=== PATIENT | female | born 1970 | race African-American/Black ===

== ENCOUNTER 2021-02-01 11:06 | Outpatient (CLI) | payer OTHER, SELFPAY ==
--- NOTE | ~2021-02-01 | XR_ITS ---
XR cervical spine 4-5V DATE: 02/01/2021 11:29 INDICATION: Fall. Neck pain TECHNIQUE: AP, open-mouth, lateral, swimmer views COMPARISON: None FINDINGS: There is reversal of cervical curvature. There is anterior spurring at C3-4 through C6-7 but cervical interspaces are relatively preserved. No fracture or dislocation, locked facet or prevertebral soft tissue swelling. IMPRESSION: Reversal of cervical curvature Anterior spurring at C3-4 through C6-7 Reviewed, dictated and finalized at location B.
[2021-02-01 11:59] LABS: Basophils Percent Auto 0.4 % (0.2-1.2); Eosinophils Absolute Auto 0.1 K/mm3 (0-0.3); Eosinophils Percent Auto 1.5 % (0-4.4); Hematocrit 37.1 % (37.0-47.0); Hemoglobin 11.5 g/dL (12.0-15.0); Immature Granulocyte Absolute 0.03 K/mm3 (0.00-0.031); Immature Granulocyte Percent A 0.4 % (0-0.5); Lymphocytes Absolute Auto 2.08 K/mm3 (0.9-3.2); Lymphocytes Percent Auto 27.9 % (18.3-44.2); Mean Corpuscular Hemoglobin 30.8 pg (26-34); Mean Corpuscular Volume 99.5 fl (80-100); Mean Platelet Volume 8.6 fl (7.4-10.4); Monocytes Absolute Auto 0.7 K/mm3 (0.1-0.6); Monocytes Percent Auto 8.7 % (2.6-8.5); Neutrophils Absolute Auto 4.6 K/mm3 (1.3-6.7); Neutrophils Percent Auto 61.1 % (45.5-73.1); Platelet Count Result 284 k/mm3 (150-375); Red Blood Count 3.73 M/mm3 (4.2-5.4); Red Cell Distribution Width 14.7 % (11.5-14.5); White Blood Count 7.5 K/mm3 (4.5-10.0)
[2021-02-01 12:12] LABS: Rheumatoid Factor < 8.6 IU/ML (<12)
[2021-02-01 12:13] LABS: CRP 0.6 mg/dL (<1.0)
[2021-02-01 12:26] LABS: Erythrocyte Sedimentation Rate 81 mm/hr (0-20)
[2021-02-01 12:46] LABS: Vitamin D 25 Hydroxy 27.3 ng/mL
[2021-02-01 13:11] LABS: Vitamin B12 > 1000.0 pg/mL (239-931)
== END 2021-02-01 11:07 | disposition home or self-care (01) ==
PROVIDERS: PCP Internal Medicine; Visit Provider Family Medicine
DX: M25.50 Pain in unspecified joint (principal); Z13.29 Encounter for screening for other suspected endocrine disorder; R53.83 Other fatigue; M54.2 Cervicalgia
CPT/HCPCS: 36415; 72050; 82306; 82607; 84443; 85025; 85652; 86038; 86140; 86430

== ENCOUNTER 2021-02-20 07:43 | Outpatient (CLI) | payer OTHER, SELFPAY ==
--- NOTE | ~2021-02-20 | MR_ITS ---
EXAMINATION: MR hip RT wo con DATE: 02/20/2021 09:11 INDICATION: Right hip pain TECHNIQUE: Magnetic resonance imaging (MRI) of the right hip was performed without intravenous contr ast. Sequences included full-field axial PD-weighted FS FSE and T1-weighted FSE, coronal of the pelvi s with PD-weighted FS FSE, T2-weighted FSE and T1-weighted FSE, small field of view of the right hip with axial PD-weighted FS FSE, sagittal PD-weighted FS FSE, coronal PD-weighted FS FSE and coronal T2 weighted FSE. Additional radial T1-weighted FGR oriented orthogonal to the acetabular rim were obt ained for evaluation of the labrum. COMPARISON: None FINDINGS: Bones/labrum/cartilage: Alignment is normal. No fracture, avascular necrosis or pathologic marrow replacing process. Moderat e to severe osteoarthritis at the right hip with nonuniform joint space narrowing most prominent ante rosuperiorly where there is greater than 50% cartilage thickness loss. There is subarticular cystic c hange both the anterior and superior aspects of the acetabulum and at the anteromedial aspect of the right femoral head. Likely degenerative tearing at the anterosuperior right acetabular labrum. Modera te to severe lower lumbar spondylosis. Fluid: Symmetric physiologic amount of fluid within both hip joints. Soft tissues: Normal and symmetric muscle bulk and signal in the pelvis and visualized proximal thighs. The iliopso as, gluteal and proximal hamstring tendons are normal. Fibroid uterus. Nabothian cysts at the cervix. Diffuse wall thickening the bladder to at least in part to decompressed state. Mall fat-containing u mbilical hernia. No pathologically enlarged pelvic/inguinal lymphadenopathy. IMPRESSION: 1. Moderate to severe right hip osteoarthritis with likely degenerative tear at the anterosuperior la tanvi. 2. Fibroid uterus. 3. Bladder wall thickening to at least in part to decompressed state although differential includes c ystitis either acute or chronic, chronic outlet obstruction or neurogenic bladder. 4. Small fat-containing umbilical hernia. Reviewed, dictated and finalized at location A. IMPRESSION: 1. Moderate to severe right hip osteoarthritis with likely degenerative tear at the anterosuperior labrum. 2. Fibroid uterus. 3. Bladder wall thickening to at least in part to decompressed state although d ifferential includes cystitis either acute or chronic, chronic outlet obstructi on or neurogenic bladder. 4. Small fat-containing umbilical hernia.
== END 2021-02-20 07:44 | disposition home or self-care (01) ==
LOC: ANHIMG 07:44
PROVIDERS: PCP Family Medicine; Visit Provider Family Medicine
DX: M25.551 Pain in right hip (principal); D25.9 Leiomyoma of uterus, unspecified; N32.9 Bladder disorder, unspecified; K42.9 Umbilical hernia without obstruction or gangrene
CPT/HCPCS: 73721

== ENCOUNTER 2022-01-19 12:10 | Outpatient (CLI) | payer OTHER, SELFPAY ==
--- NOTE | ~2022-01-19 | XR_ITS ---
XR lumbar spine 2-3V DATE: 01/19/2022 13:19 INDICATION: Generalized back pain following fall TECHNIQUE: AP, lateral, coned lateral lumbosacral views COMPARISON: None FINDINGS: Normal alignment but minimal dextroscoliosis of the lumbar spine. There is multilevel degen erative disc disease, moderate at L1-2, mild at L2-3 and L3-4, moderately severe at L4-5 and severe a t L5-S1. There is associated minimal retrolisthesis at L4-5. There is degenerative change at the apophyseal joints particularly in the mid and lower lumbar and bhumika mbosacral area. The lumbar pedicles are intact. The sacroiliac joints appear normal. No lumbar spine fracture or bone destruction is detected. The pedicles are intact. Bilateral hip osteoarthritis, right greater than left. IMPRESSION: Multilevel degenerative disc disease, most pronounced at L4-5 and L5-S1 Minimal lumbar spine dextroscoliosis Bilateral hip osteoid arthritis, greater on the right No lumbar spine fracture is detected Reviewed, dictated and finalized at location B. IMPRESSION: Multilevel degenerative disc disease, most pronounced at L4-5 and L 5-S1 Minimal lumbar spine dextroscoliosis Bilateral hip osteoid arthritis, greater on the right No lumbar spine fracture is detected
--- NOTE | ~2022-01-19 | XR_ITS ---
XR wrist RT min 3V DATE: 01/19/2022 13:18 INDICATION: Generalized pain and throbbing following a fall TECHNIQUE: 4 views COMPARISON: None FINDINGS: There is some benign cystic changes of the carpal bones including navicular, lunate and cap itate. No fracture or dislocation is evident. Mild radial ulnar joint spurring. There is mild to moderate osteoarthritis at the first through third metacarpophalangeal joints. Mild osteoarthritis at first carpometacarpal joint IMPRESSION: Radioulnar joint mild spurring Mild to moderate osteoarthritis at first through third metacarpophalangeal joints Mild osteoarthritis at first carpometacarpal joint Benign carpal bone cysts No fracture or dislocation is noted Reviewed, dictated and finalized at location B. IMPRESSION: Radioulnar joint mild spurring Mild to moderate osteoarthritis at first through third metacarpophalangeal join ts Mild osteoarthritis at first carpometacarpal joint Benign carpal bone cysts No fracture or dislocation is noted
--- NOTE | ~2022-01-19 | XR_ITS ---
XR wrist LT min 3V DATE: 01/19/2022 13:18 INDICATION: Generalized pain and throbbing in the left wrist following a fall TECHNIQUE: 4 views COMPARISON: None FINDINGS: No apparent recent fracture or dislocation is noted. There is some increased density of the proximal navicular bone, raising concern for possible avascula r necrosis. Consider CT or MR evaluation of the wrist. IMPRESSION: Possible avascular necrosis of proximal navicular bone; consider CT or MR evaluation No apparent recent fracture or dislocation Reviewed, dictated and finalized at location B.
--- NOTE | ~2022-01-19 | XR_ITS ---
XR shoulder LT min 2V DATE: 01/19/2022 13:19 INDICATION: Pain and limited range of motion of left shoulder following a fall TECHNIQUE: 4 views COMPARISON: None FINDINGS: No fracture or dislocation, periosteal reaction or bone destruction. IMPRESSION: No fracture or dislocation Reviewed, dictated and finalized at location B. IMPRESSION: No fracture or dislocation
== END 2022-01-19 12:11 | disposition home or self-care (01) ==
LOC: ANHIMG 12:15
PROVIDERS: PCP Family Medicine; Visit Provider Family Medicine
DX: M25.512 Pain in left shoulder (principal); M51.36 Other intervertebral disc degeneration, lumbar region; M51.37 Other intervertebral disc degeneration, lumbosacral region; M16.0 Bilateral primary osteoarthritis of hip; M19.031 Primary osteoarthritis, right wrist
CPT/HCPCS: 72100; 73030; 73110

== ENCOUNTER 2022-02-01 10:51 | Outpatient (CLI) | payer OTHER, SELFPAY ==
--- NOTE | ~2022-02-01 | US_ITS ---
EXAMINATION: US pelvic complete w TV DATE: 02/01/2022 11:52 INDICATION: Benign neoplasm Comparison:No prior studies for comparison. TECHNIQUE: Multiple transabdominal and endovaginal sonographic images of the pelvis performed. FINDINGS: The uterus measures 9.8 x 4.3 x 5.6 cm. Uterine myometrium is heterogeneous with multiple m asses, largest exophytic mass posteriorly measures 3.1 x 2.5 x 2.9 cm. The endometrial complex measur es 8 mm. The ovaries are not visualized. There is no free fluid in the pelvis. There are no abnormal masses seen on either side. IMPRESSION: 1. Enlarged uterus containing multiple fibroids, largest measuring up to 3.1 cm posteriorly. Reviewed, dictated and finalized at location A.
== END 2022-02-01 10:52 | disposition home or self-care (01) ==
PROVIDERS: PCP Family Medicine; Visit Provider Student in an Organized Health Care Education/Training Program
DX: D21.9 Benign neoplasm of connective and other soft tissue, unspecified (principal)
CPT/HCPCS: 76830; 76856

== ENCOUNTER 2022-03-15 02:01 | Day surgery (SDC) | payer OTHER, SELFPAY ==
[2022-03-02 13:56] VITALS: BMI 53.4
[2022-03-15 07:28] VITALS: BP 155/99; PULSE 74; RESP 20; TEMP 35.9; O2SAT 100; BMI 52.6
[2022-03-15] MEDS: LACTATED RINGERS 1,000 ML 150 ML IV CONT (07:47)
--- NOTE | 2022-03-15 08:02 | WPDANESEPPF ---
Anes - Initial Pre Proc Eval Procedure: Operation Date: 03/15/22 08:30 Proposed Procedures p Screening Colonoscopy - Steven Gongora MD Date/Time: 03/15/22 08:02 Surgeon: Steven Gongora MD Pre Op Diagnosis: neoplasm screening Patient Data Age: 51 Gender: F Height: 1.6 m Weight: 134.8 kg Last Vital Signs Temp 96.6 F L 03/15/22 07:28 Pulse 74 03/15/22 07:28 Resp 20 03/15/22 07:28 BP 155/99 H 03/15/22 07:28 Pulse Ox 100 03/15/22 07:28 O2 Del Method Room Air 03/15/22 07:28 Allergies Allergy/AdvReac Type Severity Reaction Status Date / Time No Known Allergies Allergy Verified 03/15/22 07:27 Home Medications Medication Instructions Recorded Confirmed Type B-complex with vitamin C 1 tablet PO DAILY 01/18/22 03/02/22 History furosemide 20 mg tablet 10 mg PO QAM 01/18/22 03/02/22 History lactobacillus combination no.9 4 4,000 mmu cells PO DAILY 01/18/22 03/02/22 History billion cell capsule (Adult 50 Plus Probiotic) multivitamin (Daily Multi-Vitamin 1 tablet PO DAILY 01/18/22 03/02/22 History tablet) tumeric 100 mg-tyron 150 mg-olive 1 cap PO DAILY 01/18/22 03/02/22 History 50 mg-oreg 150 mg-caprylate capsule Patient hx anesthesia problems: none Family hx anesthesia problems: none Results Review: All pre-operative results and documents have been reviewed as part of the pre-operative evaluation. [facility] Past Medical History Medical History Arthritis History of miscarriage History of vaginal delivery Surgical History Surgical History History of section History of cholecystectomy History of dilation and curettage Family History Family History Mother Breast cancer Father Diabetes mellitus Grandparent Breast cancer Social History Social History (Reviewed 03/02/22 @ 11:14 by KAYLA Leslie Smoking status: Never smoker Alcohol intake: current Alcohol use details: socailly Substance use type: does not use Living arrangements: with family Spiritual care concerns: No Anes - Eval Final PreProcedure Day of Procedure 03/15/22 08:02 Patient weight: morbidly obese Heart: regular rate and rhythm Lungs: clear to auscultation Airway: Mallampati scale class II Neurological: alert and oriented Last oral intake: >/= 8 hours ASA classification: III Emergent: no Anesthetic plan: proceed Anesthesia type and monitoring: general GIVS and standard monitoring Results Review: All pre-operative results and documents have been reviewed as part of the pre-operative evaluation. Informed Consent: The patient's anesthetic plan and its attendant risks and benefits were discussed with the patient/family/POA. Questions were solicited and answers provided to the satisfaction of the patient/family/POA.
--- NOTE | 2022-03-15 08:28 | PM.HPGS ---
History of Present Illness History of Present Illness Consent: Risks, benefits, and alternatives have been discussed and questions answered. Patient agrees to proceed with procedure. Chief complaint: neoplasm screening Narrative: Lisa Walker is a 51 year old female here for first screening colonoscopy Review of Systems Constitutional: Constitutional: Denies headache(s) and Denies weakness Eyes: Eyes: Denies blurry vision ENT: Reports Normal hearing present, Denies headache(s) and Denies neck pain Cardiovascular: Cardiovascular: Denies chest pain and Denies dyspnea Respiratory: Respiratory: Denies dyspnea Gastrointestinal: Gastrointestinal: Reports no additional gastrointestinal complaints Genitourinary: Genitourinary: Denies dysuria Musculoskeletal: Musculoskeletal: Denies neck pain Integumentary/Breasts: Skin/Breast: Denies dry skin Neurologic: Reports Normal hearing present, Denies headache(s) and Denies weakness Psychiatric: Psychiatric: Denies anxiety Endocrine: Endocrine: Denies change in body appearance Hematologic/Lymphatic: Hematologic/Lymphatic: Denies easy bleeding Allergic/Immunologic: Allergic/Immunologic: Denies urticaria PMFSH Past Medical History Medical History (Updated 03/15/22 @ 08:28 by Steven Gongora MD) Arthritis Colon cancer screening History of miscarriage History of vaginal delivery Surgical History Surgical History History of section History of cholecystectomy History of dilation and curettage Family History Family History Mother Breast cancer Father Diabetes mellitus Grandparent Breast cancer Social History Social History Smoking status: Never smoker Alcohol intake: current Alcohol use details: socailly Substance use type: does not use Living arrangements: with family Spiritual care concerns: No Meds Home Medications and Allergies Home Medications Medication Instructions Recorded Confirmed Type B-complex with vitamin C 1 tablet PO DAILY 01/18/22 03/02/22 History furosemide 20 mg tablet 10 mg PO QAM 01/18/22 03/02/22 History lactobacillus combination no.9 4 4,000 mmu cells PO DAILY 01/18/22 03/02/22 History billion cell capsule (Adult 50 Plus Probiotic) multivitamin (Daily Multi-Vitamin 1 tablet PO DAILY 01/18/22 03/02/22 History tablet) tumeric 100 mg-tyron 150 mg-olive 1 cap PO DAILY 01/18/22 03/02/22 History 50 mg-oreg 150 mg-caprylate capsule Allergies Allergy/AdvReac Type Severity Reaction Status Date / Time No Known Allergies Allergy Verified 03/15/22 07:27 Vital Signs Vital Signs - 24 hr 03/15/22 07:28 Temperature 96.6 F L Pulse Rate 74 Respiratory Rate 20 Blood Pressure 155/99 H Pulse Oximetry 100 Oxygen Delivery Room Air Exam Const: General: comfortable and no acute distress HENMT: General nose exam: Normal nares present Eyes: General: appearance normal, both eyes and all related structures Neck: Neck: no JVD Resp: Auscultation: clear to auscultation bilaterally Cardio: Rate: regular rate Rhythm: regular rhythm GI: Inspection: non-distended GI Palp: Yes Soft to palpation Skin: General skin exam: normal color Neuro: General: gait normal Speech: normal speech Extrem: General: normal to inspection Psych: Mental Status: mental status grossly normal Assessment and Plan Assessment and plan (1) Colon cancer screening: Code(s): Z12.11 - Encounter for screening for malignant neoplasm of colon Status: Acute Assessment and Plan: colonoscopy
[2022-03-15 08:50] VITALS: BP 136/89; PULSE 81; RESP 21; O2SAT 100
[2022-03-15 09:00] VITALS: BP 129/82; PULSE 75; RESP 20; O2SAT 100
[2022-03-15 09:10] VITALS: BP 134/92; PULSE 61; RESP 17; O2SAT 100
== END 2022-03-15 09:23 | disposition home or self-care (01) ==
PROVIDERS: PCP Family Medicine; Visit Provider Internal Medicine Gastroenterology
PROC: 0DJD8ZZ Inspection of Lower Intestinal Tract, Via Natural or Artificial Opening Endoscopic (ICD-10-PCS; CPT 45378; principal; 2022-03-15 08:30)
DX: Z12.11 Encounter for screening for malignant neoplasm of colon (principal); K64.8 Other hemorrhoids; M19.90 Unspecified osteoarthritis, unspecified site; E66.01 Morbid (severe) obesity due to excess calories; Z68.43 Body mass index [BMI] 50.0-59.9, adult
CPT/HCPCS: 45378; J2001; J7120

== ENCOUNTER 2022-05-18 07:30 | Outpatient (RCR) | payer OTHER, SELFPAY ==
--- NOTE | 2022-02-23 09:14 | PTOPEVAL ---
Thank you for referring Lisa Walker to [facility].? She is scheduled to be seen for therapy? 2 x/week for 5 weeks. Treatment plan is to include land and aquatic exercises. Please review, sign, date and return this plan of care ROHIT. I agree with and certify that the following plan of care is medically necessary. Referring Physician Date Attending Provider: Ronaldo Levin MD Past Medical History Source of Past Medical History Patient Neurological History Hx Neurological Disorders No Significant History Cardiovascular History Hx Cardiac Disorders No Significant History Respiratory History Hx Respiratory Disorders No Significant History Gastrointestinal History Hx Cholecystectomy Yes Genitourinary History Hx Genitourinary Disorders No Significant History Musculoskeletal History Hx Arthritis Yes: all over--R hip,L knee, B wrists,neck; Hx Other Musculoskeletal Disorders Yes: L knee meniscal tear-non surgery; Hematological History Hx Hematological Disorders No Significant History Endocrine History Hx Endocrine Disorders No Significant History Other History Hx Other Medical Conditions Yes: obesity Evaluation Information Diagnosis generalized OA-needs water therapy Onset one year Subjective Information chronic pain, gradual increase Query Text:As Reported By Patient/ in pain; have had 2 falls-- Family 2018 and Feb 2021--one was sitting and woke up on floor, not sure what happened; walking and fell on black ice; have had chiropractor treatment- had back & hip manipulation, helped align pelvis and able to start walking again; Previous Treatments Previous Treatments For This Problem had aquatic therapy here prior to covid restrictions Prior Level of Function Activity Level (Last 3 Months) 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
--- NOTE | 2022-04-06 11:42 | PTOPPROG ---
Assessment and note entered by Supriya Waterman, PT Evaluation Information Assessment Status Re-evaluation Subjective Information Lisa reports: back and hip are not any better, still aggravating and hurting; but feel like exercises are getting her stronger and moving is helping some; saw Dr Garcia, and he said cannot do surgery on hip until lose wt, has a nutrition consult order and wants her to use a cane; she wants to continue therapy; Assessment PT Clinical Summary Lisa has received 9 PT sessions, for the diagnosis of back and R hip pain. Compared to the initial evaluation: pain rating at the worst is the same 10/10, and reports now at times of NO pain in hip with lying down and hip & knee flexion; increased strength with more reps of supine exercises and doing aquatic exercises; increased distance with 2 minute walking test of 25'; reported sleeping tolerance is same; when she is feeling better, increased standing and home tasks tolerance from 15 min to 1 hour; flexibility of R hip is the same and increases her pain; self assessment Oswestry score is 66% -- improved by 12%; Have discussed with her use of home TENS unit for pain control; walking with a cane and joining a fitness center that has a pool for continued strengthening and wt loss. Continue PT treatment on land and in the water-- for the buoyancy effects of the water to ease movement and strengthening. Plan of Care Interventions Aquatic Therapy,Hot Pack/Cold Pack,Manual Therapy, Patient/Caregiver Education,Therapeutic Activities, Therapeutic Exercise PT Services Indicated Yes Treatment Frequency and 2x/wk for 5 weeks Duration These treatments will address the objective and functional deficits as defined above. The patient will be advanced safely and appropriately in order for the patient to progress towards his/her prior level of function. Additional exercises will be introduced and as well as a comprehensive home exercise program upon discharge, if needed, ?to ensure carryover of functional gains achieved in the clinic. This treatment plan has been reviewed and agreement upon by the patient.
--- NOTE | 2022-05-10 08:14 | PCPTNOTE ---
Patient did not show up for scheduled appointment this date. Pt did call however Pt called after appointment time at 07:50am.
--- NOTE | 2022-05-11 09:07 | PTOPPROG ---
Assessment and note entered by Supriya Waterman, PT Evaluation Information Assessment Status Progress Subjective Information Lisa reports: is about the same with the hip, back is more stiff; still working alot, shifts 8- 12 hours, have done up to 18 hour shift; stim and pool help the hip pain; pain range of 5-8/10; R lateral and anterior hip, also deep inside hip; feels swollen and heat in the hip and legs; with sleeping, awaken 5x/night due to pain; reported standing/walking tolerance 10-15 min, then have to hold onto something or sit down; also have pain in L knee; can only do light home tasks, have not been cooking; decrease pain with resting, lie down, stretching; having problems with getting shoes and socks on-- demo to pt and trial of sock aid, neurology physician and dressing stick; discussed home stim unit; Assessment PT Clinical Summary Lisa has received 16 PT sessions, on land and in the water. Oswestry self assessment functional score of 72% limitation in activity. Compared to the last reevaluation she has improved with: pain rating at the worst has decreased from 10/10 to 8/10; 2 minute walking test distance increased 80'; does not have pain increase with supine hip ER or hamstring stretch, trunk flexion or rotation to L; activity tolerance with aquatic exercises and slight increase with supine hip exercises; self assessment Oswestry is 6% worse. She is about the same with reported sleeping and activity tolerance, flexibility of hip flexion and hamstring length; Discussed with her to make a follow up appointment with her dr; obtain home stim unit for pain control, use of sock aid and dressing stick for shoes and socks don/doffing. And to join a fitness center for aquatic exercises. The goals were partially achieved. Continue PT. Plan for one more plan of treatment for 4 weeks, then plan for discharge from PT services. Plan of Care Interventions Aquatic Therapy,Electrical Stimulation,Hot Pack/ Cold Pack,Manual Therapy,Neuro Re-education, Patient/Caregiver Education,Therapeutic Activities, Therapeutic Exercise,Ultrasound PT Services Indicated Yes Treatment Frequency and 2x/wk for 4 weeks Duration These treatments will address the objective and functional deficits as defined above. The patient wi
--- NOTE | 2022-05-23 09:02 | PCPTNOTE ---
This treatment is being continued on visit number [id number] . Please see documentation on both accounts to view progress. Completed interventions, outcomes, and problems have been marked as Inactive to facilitate the copying of the Care plan routine for recurring accounts.
== END 2022-05-23 07:21 | disposition home or self-care (01) ==
LOC: ANHPT 07:30
PROVIDERS: PCP Family Medicine; Visit Provider Family Medicine
DX: M19.90 Unspecified osteoarthritis, unspecified site (principal)
CPT/HCPCS: 97014; 97110; 97113; 97140; 97161; 97530; G0283

== ENCOUNTER 2022-05-31 08:00 | Outpatient (RCR) | payer OTHER, SELFPAY ==
--- NOTE | 2022-05-23 09:21 | PCPTNOTE ---
This treatment is continued from previous visit number [id number]. Please see documentation on both accounts to view progress. Completed interventions, outcomes, and problems have been marked as Inactive to facilitate the copying of the Care plan routine for recurring accounts.
--- NOTE | 2022-05-26 11:41 | PCPTNOTE ---
Patient called & cancelled scheduled appointment this date due to work.
--- NOTE | 2022-06-07 08:50 | PCPTNOTE ---
Patient did not show up for scheduled appointment this date. Called patient, however, was unable to leave a message due to mailbox was full.
--- NOTE | 2022-06-08 08:46 | PCPTNOTE ---
Addendum entered by Supriya Waterman, PT 06/08/22 14:17: pt called and left a message that she had to work and not able to make it in for today's reeval; Original Note: pt did not show for today's reeval; called her and unable to leave a message, her voice mail was full; will send her an in house/hospital email;
--- NOTE | 2022-06-21 10:27 | PCPTNOTE ---
PHYSICAL THERAPY DISCHARGE 06-21-22 Attending Provider: Ronaldo Levin MD Patient:Lisa Walker Date of :1970 Ms. Walker has received 19 PT sessions, from February 23 to May 31, for the diagnosis of R hip severe OA. She then stopped attending therapy; Therefore she will be discharged at this time. The goals were not addressed. Thank you for referring this patient to [facility].
== END 2022-06-21 11:33 | disposition home or self-care (01) ==
LOC: ANHPT 08:00
PROVIDERS: PCP Family Medicine; Visit Provider Family Medicine
DX: M16.11 Unilateral primary osteoarthritis, right hip (principal)
CPT/HCPCS: 97014; 97110; 97113; G0283

== ENCOUNTER 2022-08-03 08:10 | Outpatient (RCR) | payer OTHER, SELFPAY ==
[2022-08-03 08:22] VITALS: BMI 53.1
[2022-08-03 10:35] VITALS: BMI 53.1
== END 2022-10-23 08:48 | disposition home or self-care (01) ==
LOC: ANHDMC 08:10
PROVIDERS: PCP Family Medicine; Visit Provider Family Medicine
DX: R63.4 Abnormal weight loss (principal); Z71.3 Dietary counseling and surveillance
CPT/HCPCS: 97802

== ENCOUNTER 2022-10-12 11:21 | Outpatient (CLI) | payer OTHER, SELFPAY ==
--- NOTE | 2022-10-12 | ECG_ITS ---
Measurements Intervals [place] Rate: 64 P: 33 NE: 166 QRS: 40 QRSD: 84 T: 28 QT: 421 QTc: 437 Interpretive Statements SINUS RHYTHM BASELINE ARTIFACT- I, III, AVR, AVL, AVF NORMAL ECG NO PREVIOUS ECG AVAILABLE FOR COMPARISON Electronically Signed On 10-12-2022 12:46:44 CDT by Thuan Quintanilla D.O.
== END 2022-10-12 11:22 | disposition home or self-care (01) ==
LOC: ANHCARD 11:24
PROVIDERS: PCP Family Medicine; Visit Provider Obstetrics & Gynecology
DX: E66.9 Obesity, unspecified (principal)
CPT/HCPCS: 93005

== ENCOUNTER 2023-06-04 07:19 | Outpatient (CLI) | payer OTHER, SELFPAY ==
--- NOTE | ~2023-06-04 | XR_ITS ---
Lumbosacral Spine: AP and lateral views Clinical History: Pain Findings: The normal lordotic curve is maintained. The vertebral bodies and posterior elements are i ntact. There is mild to moderate degenerative disc narrowing at L4-L5 and L5-S1. There is moderate to advanced facet arthropathy from L4 through S1. The sacroiliac joints are normally outlined. Impression: Moderate degenerative spondylosis at the lower lumbar spine, as detailed above. Reviewed, dictated and finalized at location M. TY EQUIPMENT TESTER Impression: Moderate degenerative spondylosis at the lower lumbar spine, as detailed above.
--- NOTE | ~2023-06-04 | XR_ITS ---
Thoracic spine: Clinical Indication: Back pain AP and lateral views were performed. No fracture is seen. There is normal alignment of the vertebrae. The intervertebral disc spaces appe ar normal. Paravertebral soft tissues appear normal. Impression: No significant abnormalities noted. Reviewed, dictated and finalized at [facility]. SFER MACHINE OPERATOR Impression: No significant abnormalities noted.
--- NOTE | ~2023-06-04 | XR_ITS ---
Cervical Spine: AP, lateral, open-mouth views Clinical History: Pain Findings: There is mild reversal of the normal cervical lordosis. No fracture or subluxation seen. Th ere is minimal degenerative disc change. Pre-vertebral soft tissues are unremarkable. Impression: Mild reversal of the normal cervical lordosis, with minimal degenerative disc change. Reviewed, dictated and finalized at [facility]. CT CHILL CASTER Impression: Mild reversal of the normal cervical lordosis, with minimal degenerative disc c fernando.
== END 2023-06-04 07:20 | disposition home or self-care (01) ==
PROVIDERS: PCP Family Medicine; Visit Provider Chiropractor
DX: M54.2 Cervicalgia (principal); M54.6 Pain in thoracic spine; M47.896 Other spondylosis, lumbar region
CPT/HCPCS: 72040; 72050; 72072; 72100

== ENCOUNTER 2024-07-04 10:31 | Outpatient (CLI) | payer OTHER, SELFPAY ==
--- NOTE | ~2024-07-04 | CT_ITS ---
CT of the Abdomen and Pelvis: Indication: Bloating Technique: 2.5 mm axial scans were obtained through the abdomen and pelvis following intravenous adm inistration of 100 cc of Omnipaque 350. Dose reduction technique was used on this scan by utilizing a utomated exposure control and iterative reconstruction technique. The dose-length product (DLP) was 1 044.50 mGy-cm. Findings: Scans through the lung bases are unremarkable. The liver, spleen, pancreas, adrenals and kidneys are within normal limits. Cholecystectomy clips are noted. No evidence of aortic aneurysm. No lymphadenopathy. No bowel obstruction or bowel wall thickening. There is no evidence to suggest acute appendicitis. Sm all fat-containing umbilical hernia present. Images through the pelvis were performed. Urinary bladder unremarkable. Probable uterine fibroid prob ably present. No ascites. Impression: Small fat-containing umbilical hernia. Probable uterine fibroid. Reviewed, dictated and finalized at [facility]. [employer]ING [employer]ER Impression: Small fat-containing umbilical hernia. Probable uterine fibroid.
== END 2024-07-04 10:32 | disposition home or self-care (01) ==
LOC: MICIMG 10:33
PROVIDERS: PCP Internal Medicine Gastroenterology; Visit Provider Internal Medicine Gastroenterology
DX: K42.9 Umbilical hernia without obstruction or gangrene (principal)
CPT/HCPCS: 74177; Q9967

== ENCOUNTER 2024-07-10 12:03 | Outpatient (CLI) | payer OTHER, SELFPAY ==
[2024-07-10 12:32] LABS: Hematocrit 40.3 % (37.0-47.0); Hemoglobin 12.9 g/dL (12.0-15.0); Mean Corpuscular Hemoglobin 31.9 pg (26-34); Mean Corpuscular Volume 99.8 fl (80-100); Mean Platelet Volume 8.7 fl (7.4-10.4); Platelet Count Result 279 k/mm3 (150-375); Red Blood Count 4.04 M/mm3 (4.2-5.4); Red Cell Distribution Width 13.5 % (11.5-14.5); White Blood Count 7.2 K/mm3 (4.5-10.0)
[2024-07-10 12:42] LABS: Alanine Aminotransferase 16 U/L (6-35); Albumin Level 4.1 g/dL (3.5-5.1); Alkaline Phosphatase 89 U/L (38-126); Anion Gap 2 mmol/L (4-12); Aspartate Amino Transferase 25 U/L (14-36); Bilirubin,Total 0.6 mg/dL (0.2-1.3); Blood Urea Nitrogen 8 mg/dL (7-17); Calcium 9.2 mg/dL (8.4-10.2); Carbon Dioxide 26 mmol/L (22-30); Chloride 110 mmol/L (98-107); Estimated Glomerular Filt Rate > 60; Glucose 96 mg/dL (65-110); Potassium 4.2 mmol/L (3.4-5.0); Sodium 138 mmol/L (137-145)
== END 2024-07-10 12:04 | disposition home or self-care (01) ==
PROVIDERS: PCP Internal Medicine Gastroenterology; Visit Provider Internal Medicine Gastroenterology
DX: R19.07 Generalized intra-abdominal and pelvic swelling, mass and lump (principal); R60.0 Localized edema
CPT/HCPCS: 36415; 80053; 85027

== ENCOUNTER 2024-10-10 08:59 | Outpatient (CLI) | payer OTHER, SELFPAY ==
--- OUTSIDE RECORDS SUMMARY | 2024-10-10 10:03 | XMS_ITS | Data Portability ---
Author Organization [facility] Address [address] [place] [address] [place] [address] Care Team Providers Care Material Manager Name Role Phone MADDISON IVERSONLEON Primary Care Provider Assessment Encounter Date Assessment Date Assessment LastModified by Organization Details LastModified Time 08/11/2024 08/11/2024 Annual gynecological exam performed. Patient will come back in a year unless there are new symptoms. [email or web address] Not available 08/11/2024 16:43:42 Plan of Treatment Reminders Order Date Submit Date Provider Last Modified By Organization Details Last Modified Time Details Appointments None recorded. Lab urinalysis, dipstick 2024 025 [facility], [address], [address], [place], [address], 18:42:38 culture, urine 2024 025 [facility] (Lab), [address], [place], [address], 5 00:26:53 CBC w/ auto diff 2024 025 [facility] (Lab), [address], [place], [address], 5 04:01:36 CMP, serum or plasma 2024 025 [facility] (Lab), [address], [place], [address], 5 04:01:36 lipid panel, blood 2024 025 [facility] (Lab), [address], [place], [address], 5 04:01:36 TSH, serum or plasma 2024 025 [facility] (Lab), [address], [place], [address], 5 04:01:36 HbA1c (hemoglobin A1c), blood 2024 025 [facility] (Lab), [address], [place], [address], 5 04:01:36 pap, IG + HR HPV - HPV regardless but if HPV is positive need subtyping 16,18/45Add CT/GC/Trich 2024 025 [facility] (Lab), [address] , [place], [address], 5 13:13:53 hormone panel, serum or plasma 2024 025 [facility] (Lab), [address], [place], [address], 5 04:01:37 Referral physical therapist referral [address] [place] [address] (Outpatient Physical Therapy), [address], [place], [address], 5 04:03:22 Procedures None recorded. Surgeries None recorded. Imaging MAMMO, screening, digital, bilateral 2024 025 [facility] ([facility]), [address] [place], [address], 5 04:01:36 Medication Orders phentermine 15 mg capsule 2022 023 [email or web address] [facility] #[id number], [address] [place] [address], [id number], 5 17:26:03 Ozempic 0.25 mg or 0.5 mg (2 mg/1.5 mL) subcutaneou s pen injector 2022 023 [email or web address] [facility] #[id number], [address] [place] [address], [id number], 5 17:26:05 Mounjaro 2.5 mg/0.5 mL subcutaneou s pen injector 2022 023 LUIS E [facility] #[id number], [address] [place] [address], [id number], 3 13:11:57 Patient TargetsNo targets recorded. Patient InstructionsNo instructions recorded. Reason for Referral Physical Therapist Referral for Female stress incontinence Referring Physician: Fatuma Mendez, Gynecology, Encounter Date: 08/11/2024 Results Created Date Observation Date Name Description Value Unit Range Abnormal Flag Note LastModifiedBy Organization Detail LastModifiedTime 09/13/19 23 09/13/2022 CBC W/DIF F WBC 9.8 10'3/ uL 3.6-10 .2 Not Available [facility] (Lab) [address] , [place], [address], 09/14/2022 03:56:52 09/13/19 23 09/13/2022 CBC W/DIF F RBC 3.92 10'6/ uL (based on docume nted legal sex) 4.10-5 .30 low Not Available [facility] (Lab) [address] [place], [address], 09/14/2022 03:56:52 09/13/19 23 09/13/2022 CBC W/DIF F HGB 12.5 g/dL (based on docume nted legal sex) 11.9-1 5.8 Not Available [facility] (Lab) [address], [place], [address], 09/14/2022 03:56:52 09/13/19 23 09/13/2022 CBC W/DIF F HCT 41.3 % (based on docume nted legal sex) 37.4-4 8.3 Not Available [facility] (Lab) [address], [place], [address], 09/14/2022 03:56:52 09/13/19 23 09/13/2022 CBC W/DIF F MCV 105.4 fL 82.0-9 9.0 high Not Available [facility] (Lab) [address], [place], [address], 09/14/2022 03:56:52 09/13/19 23 09/13/2022 CBC W/DIF F MCH 31.9 pg 27.0-3 3.0 Not Available [facility] (Lab) [address], [place], [address], 09/14/2022 03:56:52 09/13/19 23 09/13/2022 CBC W/DIF F MCHC 30.3 g/dL 32.0-3 6.0 low Not Available [facility] (Lab) [address], [place], [address], 09/14/2022 03:56:52 09/13/19 23 09/13/2022 CBC W/DIF F RDW 13.9 % 11.0-1 5.0 Not Available [facility] (Lab) [address], [place], [address], 09/14/2022 03:56:52 09/13/19 23 09/13/2022 CBC W/DIF F plt 342 10'3/ uL 150-45 0 Not Available [facility] (Lab) [address] [place], [address], 09/14/2022 03:56:52 09/13/19 23 09/13/2022 CBC W/DIF F MPV 9.7 fL 9.8-12 .7 low Not Available [facility] (Lab) [address], [place], [address], 09/14/2022 03:56:52 09/13/19 23 09/13/2022 CBC W/DIF F NRBC's 0.0 % 0 Not Available [facility] (Lab) [address], [place], [address], 09/14/2022 03:56:52 09/13/19 23 09/13/2022 CBC W/DIF F absolute NRBCs 0.0 10'3/ uL 0 Not Available [facility] (Lab) [address], [place], [address], 09/14/2022 03:56:52 09/13/19 23 09/13/2022 CBC W/DIF F neutrophils 61.2 % 37.0-7 2.0 Not Available [facility] (Lab) [address], [place], [address], 09/14/2022 03:56:52 09/13/19 23 09/13/2022 CBC W/DIF F lymphocytes 27.5 % 16.0-4 8.0 Not Available [facility] (Lab) [address], [place], [address], 09/14/2022 03:56:52 09/13/19 23 09/13/2022 CBC W/DIF F monocytes 9.6 % 4.0-14 .0 Not Available [facility] (Lab) [address], [place], [address], 09/14/2022 03:56:52 09/13/19 23 09/13/2022 CBC W/DIF F eosinophils 1.1 % 0.0-9. 0 Not Available [facility] (Lab) [address], [place], [address], 09/14/2022 03:56:52 09/13/19 23 09/13/2022 CBC W/DIF F basophils 0.4 % 0.0-2. 0 Not Available [facility] (Lab) [address], [place], [address], 09/14/2022 03:56:52 09/13/19 23 09/13/2022 CBC W/DIF F immature granulocytes 0.2 % no define d refere nce range Not Available [facility] (Lab) [address] [facility], [place], [address], 09/14/2022 03:56:52 09/13/19 23 09/13/2022 CBC W/DIF F absolute neutrophils 6.0 10'3/ uL 1.1-6. 0 Not Available [facility] (Lab) [address] [facility], [place], [address], 09/14/2022 03:56:52 09/13/19 23 09/13/2022 CBC W/DIF F absolute lymphocytes 2.7 10'3/ uL 0.7-3. 4 Not Available [facility] (Lab) [address] [facility], [place], [address], 09/14/2022 03:56:52 09/13/19 23 09/13/2022 CBC W/DIF F absolute monocytes 0.9 10'3/ uL 0.3-1. 0 Not Available [facility] (Lab) [address] [facility], [place], [address], 09/14/2022 03:56:52 09/13/19 23 09/13/2022 CBC W/DIF F absolute eosinophils 0.1 10'3/ uL 0.0-0. 6 Not Available [facility] (Lab) [address] [facility], [place], [address], 09/14/2022 03:56:52 09/13/19 23 09/13/2022 CBC W/DIF F absolute basophils 0.0 10'3/ uL 0.0-0. 1 Not Available [facility] (Lab) [address] [facility], [place], [address], 09/14/2022 03:56:52 09/13/19 23 09/13/2022 CBC W/DIF F absolute immature granulocytes 0.0 10'3/ uL 0.00-0 .10 2022 2:23 AM: P indic ates parti al resul ts on a panel have been relea sed. Addit ional resul ts will follo w. 2022 2:23 AM: This resul t has been final verif ied. No addit ional or dunham ed resul ts are expec odmenic. Not Available [facility] (Lab) [address] [facility], [place], [address], 09/14/2022 03:56:52 09/13/19 23 09/13/2022 LIPID PANEL ,AMA (LDL- CALC) total cholesterol 141 mg/dL 0-199 Not Available [facility] (Lab) [address] [facility], [place], [address], 09/14/2022 03:56:52 09/13/19 23 09/13/2022 LIPID PANEL ,AMA (LDL- CALC) triglyceride s 60 mg/dL 0.00-1 50.00 NCEP Refer ence Value s for Trigl yceri jennifer: Cristela l: <150 mg/dL Borde rline High: 150 - 199 mg/dL High: 200 - 499 mg/dL Very High: >/= 500 mg/dL Not Available [facility] (Lab) [address] [facility], [place], [address], 09/14/2022 03:56:52 09/13/19 23 09/13/2022 LIPID PANEL ,AMA (LDL- CALC) HDL cholesterol 51 mg/dL >40 Not Available [facility] (Lab) [address] [facility], [place], [address], 09/14/2022 03:56:52 09/13/19 23 09/13/2022 LIPID PANEL ,AMA (LDL- CALC) LDL cholesterol 78 mg/dL 0-99 Cutof f value s recom rebecca d by the Natio nal Betsy stero l [employer]ca tion Progr am: KRYSTINA ABLE: Betsy stero l <200 mg/dL LDL <100 mg/dL BORDE RLINE : Betsy stero l 200-2 39 mg/dL LDL 101-1 59 mg/dL HIGHE R RISK: Betsy stero l >240 mg/dL LDL >160 mg/dL , HDL <40 mg/dL Not Available [facility] (Lab) [address] [facility], [place], [address], 09/14/2022 03:56:52 09/13/1909/13/2022 LIPID PANEL ,AMA (LDL- CALC) non-HDL cholesterol 90 mg/dL no refere nce range A reaso nable goal for non-H DL betsy stero l is one that is 30 mg/dL highe r than the LDL betsy stero l goal. Not Available [facility] (Lab) [address] [facility], [place], [address], 09/14/2022 03:56:52 09/13/19 23 09/13/2022 LIPID PANEL ,AMA (LDL- CALC) chol/HDL ratio 2.8 . 0.0-5. 0 Not Available [facility] (Lab) [address] [place], [address], 09/14/2022 03:56:52 09/13/19 23 09/13/2022 TSH, REFLE X FREE T4 TSH 2.15 uIU/m L 0.30-5 .33 Not Available [facility] (Lab) [address] [place], [address], 09/14/2022 03:56:53 09/13/19 23 09/13/2022 VITAM IN D, 25-OH (TOTA L D2/D3 ) vitamin D, 25-hydroxy, total 21.5 NG/mL 30.0-1 00.0 low Sugge stive of Defic iency : <20 ng/mL Sugge stive of Insuf ficie ncy: 20-29 ng/mL Sugge stive of Suffi cienc y: 30-10 0 ng/mL Sugge stive of Toxic ity: >150 ng/mL Not Available [facility] (Lab) [address] , [place], [address], 09/14/2022 03:56:53 10/06/1910/05/2022 HEMOG LOBIN A1C hemoglobin A1C 5.7 % 0-5.6 high The Ameri can [employer]abe shaun [employer] iatio n recom mends that a prima ry goal of thera py shoul d be a HBA1C of < 7% and that physi cians shoul d reeva luate the treat ment regim en in patie nts with HBA1C value s consi stent ly > 8%. <5.7% Cristela l 5.7 - 6.4% Incre ased risk for diabe shaun >=6.5 % Diagn ostic of diabe shaun <7.0% Goal of thera py >8.0% Actio n sugge sted Not Available [facility] (Lab) [address], [place], [address], 10/06/2022 02:36:11 08/11/19 25 08/11/2024 urina lysis , dipst ick Leukocytes - Not Available [facility] [address], [place], [address], 08/11/2024 18:28:22 08/11/19 25 08/11/2024 urina lysis , dipst ick Nitrite + Not Available [facility] [address], [place], [address], 08/11/2024 18:28:22 08/11/19 25 08/11/2024 urina lysis , dipst ick Urobilinogen - Not Available Octavio mondragon [address], [place], [address], 08/11/2024 18:28:22 08/11/19 25 08/11/2024 urina lysis , dipst ick Protein trace Not Available [facility] [address], [place], [address], 08/11/2024 18:28:22 08/11/19 25 08/11/2024 urina lysis , dipst ick pH 7 Not Available [facility] [address], [place], [address], 08/11/2024 18:28:22 08/11/19 25 08/11/2024 urina lysis , dipst ick Specific [place] 1.015 Not Available [facility] marialuisa [address], [place], [address], 08/11/2024 18:28:22 08/11/19 25 08/11/2024 urina lysis , dipst ick Ketone - Not Available [facility] [address], [place], [address], 08/11/2024 18:28:22 08/11/19 25 08/11/2024 urina lysis , dipst ick Bilirubin - Not Available Riya [facility]que [address], [place], [address], 08/11/2024 18:28:22 08/11/19 25 08/11/2024 urina lysis , dipst ick Glucose - Not Available [facility] [address], [place], [address], 08/11/2024 18:28:22 08/11/19 25 08/11/2024 urina lysis , dipst ick Appearance cloudy Not Available [facility] [address], [place], [address], 08/11/2024 18:28:22 08/11/19 25 08/11/2024 urina lysis , dipst ick Color yellow Not Available [facility] [address], [place], [address], 08/11/2024 18:28:22 08/12/19 25 08/12/2024 CULTU RE: URINE result report SEE RESULT S BELOW abnormal Test: Cultu re: Urine Speci men Sourc e: Urine - Clean Catch Speci men Type: Urine Speci men Date: 2024 1013 Resul t Date: 2024 2323 Resul t Statu s: Final resul t Abnor mal: Yes Resul satish Lab: [facility] [address] [facility] [address] Tel: CULTU RE ----- ----- ----- --- >100, 000 CFU/m l Klebs iella pneum oniae (Abno rmal) SUSCE PTIBI LITY ----- ----- ----- --- Klebs iella pneum oniae METHO D NINA ----- ----- ----- ----- ----- ---- ----- ----- ----- ----- ----- - AMPIC ILLIN /SULB ACTAM <=8 ug/mL Susce ptibl e AZTRE ONAM <=4 ug/mL Susce ptibl e CEFAZ OTILIO <=2 ug/mL Susce ptibl e CEFEP YISSEL <=2 ug/mL Susce ptibl e CEFTA ZIDIM E <=1 ug/mL Susce ptibl e CEFTR IAXON E <=1 ug/mL Susce ptibl e CIPRO FLOXA LORNA <=0.2 5 ug/mL Susce ptibl e GENTA MICIN <=2 ug/mL Susce ptibl e LEVOF LOXAC IN <=0.5 ug/mL Susce ptibl e MEROP ENEM <=1 ug/mL Susce ptibl e NITRO FURAN TOIN 64 ug/mL Inter media te PIPER ACILL IN/TA ZOBAC ARCHIBALD <=8 ug/mL Susce ptibl e TOBRA MYCIN <=2 ug/mL Susce ptibl e TRIME THOPR IM/BARDALES LFAME THOXA ZOLE <=2 ug/mL Susce ptibl e Not Available [facility] (Lab) [address], [place], [address], 08/15/2024 00:26:53 10/13/1910/12/2022 elect ankur coleman am No observ ation record ed. [address] (Resp Services) [facility] [address] [place] [address], [address], 10/12/2022 20:36:30 Result Notes None recorded. Procedures Surgical History None recorded. Imaging Results Imaging Date Name Status LastModified by Organization Details LastModified Time 10/12/2022 electrocardiogram completed [address] (Resp Services) [address] [facility] [address], [place], [address], 10/12/2022 20:36:30 Procedure Notes None recorded. Medical Equipment None Reported. Medications Name Sig Start Date Stop Date Status Note LastModified by Organization Details LastModified Time phentermine 15 mg capsule TAKE 1 CAPSULE BY MOUTH EVERY DAY 08/11 completed Not Available Not Available Not Available sulfamethox azole 800 mg-trimetho prim 160 mg tablet Take 1 tablet every 12 hours by oral route for 7 days. 2024 active Not Available Not Available Not Avai lable topiramate 50 mg tablet TAKE 1 TABLET BY MOUTH TWICE DAILY active Not Available Not Available No t Available digestive enzymes active Not Available Not Available Not Available B Complex active Not Available Not Linda ilable Not Available Vitamin D active Not Available Not Linda ilable Not Available [place] 3 active Not Available Not Avail able Not Available Vitamin B12 active Not Available Not A vailable Not Available elderberry fruit active Not Available Not Available Not Available Probiotic active Not Available Not Linda ilable Not Available Ozempic 0.25 mg or 0.5 mg (2 mg/1.5 mL) subcutaneou s pen injector Inject 0.25 mg by subcutane ous route. 08/11 completed Not Available Not Available Not Available Mounjaro 2.5 mg/0.5 mL subcutaneou s pen injector Inject by subcutane ous route for 30 days. active Not Available Not Available No t Available Ozempic 0.25 mg or 0.5 mg (2 mg/3 mL) subcutaneou s pen injector active Not Available Not Available Not Available Vitals Date Recorded Body weight Body mass index (BMI) Body height Systolic blood pressure Diastolic blood pressure Provider Name and Address Organization Details Last Updated DateTime 09/02/2022 976544.3 4 g 54.1 kg/m2 157.48 cm 121 mm[Hg] 61 mm[Hg] LEANDRO CANADA [facility] 3 10:48:15 Date Recorded Body height Body mass index (BMI) Body weight Systolic blood pressure Diastolic blood pressure Provider Name and Address Organization Details Last Updated DateTime 10/17/2022 157.48 cm 54.9 kg/m2 296604.7 1 g 121 mm[Hg] 74 mm[Hg] [facility] 3 12:55:16 Date Recorded Body height Body mass index (BMI) Body weight Systolic blood pressure Diastolic blood pressure Provider Name and Address Organization Details Last Updated DateTime 12/25/2022 157.48 cm 52.9 kg/m2 981192.1 9 g 129 mm[Hg] 82 mm[Hg] [facility] 3 17:49:57 Date Recorded Body height Body mass index (BMI) Body weight Systolic blood pressure Diastolic blood pressure Provider Name and Address Organization Details Last Updated DateTime 08/11/2024 157.48 cm 52.4 kg/m2 649586.8 5 g 135 mm[Hg] 84 mm[Hg] Quyen Blackmon [facility] 5 17:25:56 Social History None recorded. Functional Status None recorded. Mental Status None recorded. Family History Relationship Description Onset Age of this Age Resolved Age Notes LastModified by Organization Details LastModified Time Mother Malignant tumor of breast 60 [email or web address] Not available 2024 17:40:27 Maternal Grandmother Malignant tumor of breast [email or web address] Not available 2024 17:40:27 Medical History No medical history recorded. Gynecological History Statement/Question Response Date of Last Colonoscopy Date of Last Mammogram Frequency of Cycle (Q days) Sexually Active? Y STIs/STDs N Menses Monthly N Date of Last Pap Smear Sexual Problems? N Obstetrics History GPAL:G 3 P 3 0 0 3 Type Value Full Term 3 Living 3 Total 3 Past Encounters Encounter ID Performer Location Encounter Start Date Encounter Closed Date Diagnosis/Indication Diagnosis SNOMED-CT Code Diagnosis ICD10 Code Diagnosis Note [id number] Adama Bunn MD [facility] [address] [address] 09/02/2022 10:33:47 09/04/2022 15:24:48 Obesity 935278493 E66.9 This patient is a 51-year-ol d female who presents for weight management . We took a very thorough history. We talked about some of her goals. Talked about some of her challenges . We talked about some of her previous efforts in weight loss and her activity level. We talked about limitation s for activity. Talked about energy consumptio n energy expenditur e. She was given recommenda tions and some of these areas. We talked about the importance of resistance training and cardiovasc ular exercise. We talked about her medical history in its relationsh ip to excess body weight. We talked about treatment options. We talked about the evaluation that is appropriat e for beginning weight management . We talked about her diet and our dietitian. We agreed to a dietitian consult. We agreed to a sleep study. We agreed to metabolic testing. We performed body compositio n testing today. We reviewed those results and talked about their significan ce. We spent over 1 hour together. More than 50% was counseling . We agreed to come together in 2 weeks and initiate treatment. to have sleep study, labs and a visit with the dietitian, will turn in 2 weeks to discuss treatment. She will also have an EKG. [id number] Adama Bunn MD [facility] [address] [address] 10/17/2022 12:19:04 10/17/2022 14:38:28 Prediabetes 081898312 R73.03 This patient is a 52-year-ol d female who presents for follow-up on weight management . We spent 40 minutes face-to-fa ce. More than 50% was counseling . We discussed treatment, we discussed test results and interprete d test results. We talked about treatment options. Talked about the different medication s. Talked about the risks, benefits, efficacy, alternativ es. We talked about the mechanics of doing a shot. She does have prediabete s we discussed you getting much RO using the savings card. We talked about the injector. We talked about possible side effects. She was given precaution s. Medication was prescribed . She will start the medication as soon as possible. She will follow-up in 1 month. talked about sleep study. Obesity 858148390 E66.9 [id number] Adama Bunn MD [facility] [address],[place] [address] 12/25/2022 17:16:18 12/26/2022 15:05:43 Prediabetes 864729586 R73.03 Obesity 190438843 E66.9 this patient is a 52 year female presents for follow-up on weight management . She started phentermin e a couple of weeks back. She has been losing weight steadily over the past 2 months. She was unable to get the G LP 1 agonist. We will attempt to get Ozempic. She will continue with phentermin e while we attempt Ozempic prescripti on. She is getting more active. She complains of lower extremity edema. She states that the edema extends up to her waist. She is going to contact her PMD about this edema. She is managing calories. to follow-up in 1 month. We spent 20 minutes face-to-fa ce. More than 50% was counseling [id number] Quyen Lorri [facility] [address] [address] 08/11/2024 17:12:59 08/11/2024 18:39:45 Gynecologic examination 24897444 Z01.419 Annual gynecologi macrina exam performed. Patient will come back in a year unless there are new symptoms. Suggest Calcium with Vitamin D if not eating in diet. Patient advised to get annual flu shot. Recommend yearly physicals and perform monthly breast exams. Genetic testing is available for patients with family history of cancer. Engage in safe sexual practices, use condoms. Encouraged to have daily exercise. Avoid tobacco and illicit drugs, moderation of alcohol. If BMI greater than 25 dietary consult advised. If you have any questions please call or email. mammogram- DUE; order given, pt to schedule colon cancer screening - UTD (2022 - WNL) - PCP DEXA scan- n/a Pap smear- pap w/ HPV collected laboratory evaluation - requested STI testing - requested Screening mammography 24 792948 Z12.31 Irregular periods 624721 07 N92.6 Will assess for fredy-menop ause with labs. Female str ess incontinence 72233452 N39.3 No abnormalit ies noted upon examinatio n.Avoid drinking liquids at least 2 hours before bed to avoid nocturia/i ncontinenc e.Discusse d pursuing pelvic floor therapy to help strengthen pelvic floor. Reviewed kegel exercises. Will r/o UTI with urine culture. Venereal d isease screening 391298527 Z11.3 Pt requested STI testing for GC/CT.Disc ussed the various types of STDs, related symptoms and the potential consequenc es (including effects on fertility) of STD infections . Reviewed ways to limit exposure and prevention techniques . Health Concerns Section Related Observation LastModified by Organization Detai ls LastModified Time None Recorded Concern Status LastModified by Organization Details LastModified Time None Recorded Advance Directives Directive None Recorded Payers Encounter Date Sequence Insurance Name Policy Number Policy Huang Covered Member ID Huang Member ID Guarantor Name 09/02/2022 1 [employer] [id number] Lisa Walker [id number] Lisa Kim Walker 10/17/2022 1 [employer] [id number] Lisa A Denise [id number] Lisa A Denise 12/25/2022 1 [employer] [id number] Lisa A Denise [id number] Lisa A Denise 08/11/2024 1 [employer] [id number] Lisa Kim Walker [id number] Lisa Walker Notes Date Note Type Note Provider Name and Address Organization Details Recorded Time 09/02/2022 text/html This patient is a 51-year-old female presents for weight management. She has considerable excess body weight. She has been unable to get knee and hip surgery due to her excess weight. She has trouble with mobility due to her. She is a self-esteem concern and is in +sizes now. She joint hip and back pain. She 1st started gaining weight after an injury. Menopause has affected her. She is currently 296 lb with a BMI of 54. Injury was associated with weight gain strongly. She has never used any weight loss programs. She has never been any medications. She has limit is from her Beverages. She has 2 to 3 times day and does not often eat breakfast. She does not binge or eat at night. Stress contributes to her eating, she cries chocolate and salty foods. Exercise history- none sleep history- she only sleeps 4-6 hours. She does not feel rested. She snores. Past medical history- nothing surgical history- cholecystectomy social history-unremarkable family history- no obesity, these mood- low energy and feeling overwhelmed -not conclusive for depression or anxiety. Adama Bunn MD [address], [place], [address], [facility] 09/03/2022 23:11:06 10/17/2022 text/html This patient is a 52-year-old female who presents for follow-up on weight management. We spent 40 minutes [id number]. More than 50% was counseling. We discussed treatment, we discussed test results and interpreted test results. We talked about treatment options. Talked about the different medications. Talked about the risks, benefits, efficacy, alternatives. We talked about the mechanics of doing a shot. She does have prediabetes we discussed you getting much RO using the savings card. We talked about the injector. We talked about possible side effects. She was given precautions. Medication was prescribed. She will start the medication as soon as possible. She will follow-up in 1 month. Adama Bunn MD [address], [place], [address], [facility] 10/17/2022 14:33:57 12/25/2022 text/html this patient is a 52 year female presents for follow-up on weight management. She started phentermine a couple of weeks back. She has been losing weight steadily over the past 2 months. She was unable to get the G LP 1 agonist. We will attempt to get Ozempic. She will continue with phentermine while we attempt Ozempic prescription. She is getting more active. She complains of lower extremity edema. She states that the edema extends up to her waist. She is going to contact her PMD about this edema. She is managing calories. to follow-up in 1 month. We spent 20 minutes [id number]. More than 50% was counseling Adama Bunn MD [address], [place], [address], [place] [facility] 12/25/2022 18:50:16 08/11/2024 text/html Annual GYNReport ed bypatient.Menstrual cycle:Irregular cycle intervals Urinary symptoms:No hematuria;Stress incontinence Vulva:No genital lesion Vagina:Normal vaginal discharge Breast:No breast pain; No breast lump; No nipple discharge Current Contraception:Condom s Sexual complaints:No sexual complaints; No pain during intercourse; Normal libido Menopausal Symptoms:No menopausal symptoms; Normal vaginal lubrication Psychological symptoms:No depression; No anxiety; No PMDD Preventive measures:Encourage self breast examination; Encourage regular exercise; Encourage no tobacco use; Encourage regular mammograms starting age 40 Patient presents for annual well woman exam.Patient states that her periods have been irregular, every 3-4 months, last 3 days, moderate to heavy flow, changes tampons q 3-4 hours.Patient denies hot flashes or night sweats.Patient requests hormone labs to check for fredy-menopause. Patient also reports stress incontinence, and urinary leakage and urgency during the night when getting out of bed to use the bathroom. Patient denies dysuria, frequency. Patient states that she drinks 16 oz of water before bed each night. Patient states that this has been an ongoing issue.Pt was incidentally diagnosed with uterine fibroids in the past on MRI, has not had pelvic pain. Quyen okeefe, [facility] 08/11/2024 18:30:34 OBGyn Episode No OBEpisode recorded.
[2024-10-10 13:40] LABS: Basophils Percent Auto 0.5 % (0.2-1.2); Eosinophils Absolute Auto 0.1 K/mm3 (0-0.3); Eosinophils Percent Auto 1.2 % (0-4.4); Hematocrit 40.1 % (37.0-47.0); Hemoglobin 12.5 g/dL (12.0-15.0); Immature Granulocyte Absolute 0.03 K/mm3 (0.00-0.031); Immature Granulocyte Percent A 0.5 % (0-0.5); Lymphocytes Absolute Auto 1.61 K/mm3 (0.9-3.2); Lymphocytes Percent Auto 26.9 % (18.3-44.2); Mean Corpuscular HGB Conc 31.2 g/dl (32-36); Mean Corpuscular Hemoglobin 31.9 pg (26-34); Mean Corpuscular Volume 102.3 fl (80-100); Mean Platelet Volume 9.3 fl (7.4-10.4); Monocytes Absolute Auto 0.5 K/mm3 (0.1-0.6); Monocytes Percent Auto 8.9 % (2.6-8.5); Neutrophils Absolute Auto 3.7 K/mm3 (1.3-6.7); Platelet Count Result 308 k/mm3 (150-375); Red Blood Count 3.92 M/mm3 (4.2-5.4); Red Cell Distribution Width 13.2 % (11.5-14.5)
[2024-10-10 14:01] LABS: Alanine Aminotransferase 17 U/L (6-35); Albumin Level 4.1 g/dL (3.5-5.1); Alkaline Phosphatase 114 U/L (38-126); Anion Gap 9 mmol/L (4-12); Aspartate Amino Transferase 35 U/L (14-36); Bilirubin,Total 0.6 mg/dL (0.2-1.3); Blood Urea Nitrogen 10 mg/dL (7-17); Calcium 9.3 mg/dL (8.4-10.2); Carbon Dioxide 27 mmol/L (22-30); Chloride 106 mmol/L (98-107); Cholesterol 162 mg/dL (0-200); Estimated Glomerular Filt Rate > 60; Glucose 83 mg/dL (65-110); HDL Direct 49 mg/dL; Potassium 4.1 mmol/L (3.4-5.0); Sodium 142 mmol/L (137-145); Triglycerides 39 mg/dL (<150)
[2024-10-10 14:13] LABS: LDL Cholesterol Direct 72 mg/dL
[2024-10-10 14:20] LABS: Hemoglobin A1C 5.6 % (<5.7)
[2024-10-11 07:29] LABS: FSH 24.9 mIU/mL
== END 2024-10-10 09:00 | disposition home or self-care (01) ==
LOC: ANHGOSHLAB 09:01
PROVIDERS: PCP Family Medicine; Visit Provider Student in an Organized Health Care Education/Training Program
DX: Z01.419 Encounter for gynecological examination (general) (routine) without abnormal findings (principal); N92.6 Irregular menstruation, unspecified; N39.3 Stress incontinence (female) (male)
CPT/HCPCS: 36415; 80053; 80061; 83001; 83036; 84443; 85025

== ENCOUNTER 2024-11-28 08:00 | Outpatient (RCR) | payer OTHER, SELFPAY ==
--- NOTE | 2024-09-02 13:57 | OPREHPOC ---
Outpatient Therapy Plan of Care This is a Multidisciplinary Plan of Care that may contain components documented by all disciplines (PT, OT, and ST.) PT Problem 1 PT Problem #1 Knowledge Deficit PT Goal 1 Goal / Goal Update 1. Patient will perform independent HEP 2. Patient will verbalize urge suppression strategies Target Visit 3 PT Problem 2 PT Problem #2 Impaired Functional ADLs PT Goal 1 Goal / Goal Update 1. Patient will report urinary incontinence no more than 1 time per week 2. Patient able to hold urge to void at least 30 minutes Target Visit 5 PT Problem 3 PT Problem #3 Impaired Strength PT Goal 1 Goal / Goal Update 1. Right hip abduction at least 4+/5 2. Pelvic floor strength 4/5 to reduce incontinence 3. Pelvic floor endurance 10 seconds to reduce incontinence Target Visit 5 PT Problem 4 PT Problem #4 Pain PT Goal 1 Goal / Goal Update 1. Hip pain no higher than 3/10 with typical activities Target Visit 5
--- NOTE | 2024-09-02 13:57 | PTOPEVAL1 ---
Assessment and note entered by Ama Jacome DPT Evaluation Information Assessment Status Evaluation ICD-10 Condition Codes (PT) Pain in right hip M25.551,Weakness R53.1,Stress incontinence N39.3 Subjective Information Pt reports she has had urinary incontinence for several years. Incontinence typically happens daily, with certain movements or coughing/sneezing . Has had to change her clothes at times, wears pads and goes through 4 a day. Can hold urge to void a very short amount of time. Denies pain with urination. Unsure how many times a day she voids because she will go less often at work and more at home. BM 1 time a day, denies pain. Denies history of pelvic pain. Pt has been 5 times, 3 deliveries: 2 vaginal and 1 . Minor tearing. Gall bladder surgery at least 10 years ago. No b/b history. Also reports hip pain and is using a cane, wants to address this in therapy as well. Returns to [place] in 1 year. Patient goal: be able to control my bladder, know what to do when the pain comes on Reported Pain Level Pain Score 6: Self Report Assessment PT Clinical Summary The patient is presenting to skilled therapy with a history of stress incontinence and also reports R hip pain. She demonstrates hip weakness R>L, decreased abdominal strength, and decreased pelvic floor strength and endurance. These impairments are contributing to her hip pain and cane use as well as her daily incontinence. She will highly benefit from therapy to address her impairments in order to reduce pain and restore function. Plan of Care Interventions Electrical Stimulation,Gait Training,Hot Pack/Cold Pack,Manual Therapy,Neuro Re-education,Patient/ Caregiver Education,Therapeutic Activities, Therapeutic Exercise PT Services Indicated Yes Treatment Frequency and 1 time a week for 5 visits Duration These treatments will address the objective and functional deficits as defined above. The patient will be advanced safely and appropriately in order for the patient to progress towards his/her prior level of function. Additional exercises will be introduced and as well as a comprehensive home exercise program upon discharge, if needed, ?to ensure carryover of functional gains achieved in the clinic. This treatment plan has been reviewed and agreement upon by the patient.
--- NOTE | 2024-10-13 16:17 | OPREHPOC ---
Outpatient Therapy Plan of Care This is a Multidisciplinary Plan of Care that may contain components documented by all disciplines (PT, OT, and ST.) PT Problem 1 PT Problem #1 Knowledge Deficit PT Goal 1 Goal / Goal Update 1. Patient will perform independent HEP 2. Patient will verbalize urge suppression strategies Target Visit 3 Progress Met PT Problem 2 PT Problem #2 Impaired Functional ADLs PT Goal 1 Goal / Goal Update 1. Patient will report urinary incontinence no more than 1 time per week 2. Patient able to hold urge to void at least 30 minutes Target Visit 5 Progress Met PT Problem 3 PT Problem #3 Impaired Strength PT Goal 1 Goal / Goal Update 1. Right hip abduction at least 4+/5 2. Pelvic floor strength 4/5 to reduce incontinence 3. Pelvic floor endurance 10 seconds to reduce incontinence update 10/13/24 1. improved 2. not assessed 3. not assessed Target Visit 13 Progress Partially Met PT Problem 4 PT Problem #4 Pain PT Goal 1 Goal / Goal Update 1. Hip pain no higher than 3/10 with typical activities Target Visit 13 Progress Not Met PT Problem 5 PT Problem #5 Impaired Gait PT Goal 1 Goal / Goal Update 1. Improve 2 minute walk test to at least 350 feet without stopping for pain Target Visit 13
--- NOTE | 2024-10-13 16:17 | PTOPPROG ---
Assessment and note entered by Ama Jacome DPT Evaluation Information Assessment Status Progress ICD-10 Condition Codes (PT) Pain in right hip M25.551,Weakness R53.1,Stress incontinence N39.3 Subjective Information Highest hip pain recently 03/01 and lowest 3/10. Overall is feeling better with therapy and thinks her mobility, like to get out of bed, is better. Hip pain still affects most activities at home and notices increased pain if she does things like laundry. Incontinence frequency has decreased and reports 1 time in the last week. Using 3 pads a day but is more changing them out of habit. Assessment PT Clinical Summary The patient has made some progress in therapy. She reports decreased frequency of incontinence and pad use. She reports improvements in her R LE mobility for getting out of bed but continues to have significant pain which impacts most other activities. She does demonstrate improve hip strength, but continues to have overall weakness, decreased gait speed, and gait impairments. She will continue to benefit from skilled therapy to address her impairments as well as to utilize aquatic therapy to reduce pain and improve function. Plan of Care Interventions Aquatic Therapy,Electrical Stimulation,Gait Training,Hot Pack/Cold Pack,Intermittent Compression Pump,Manual Therapy,Neuro Re-education ,Patient/Caregiver Education,Therapeutic Activities,Therapeutic Exercise,Ultrasound PT Services Indicated Yes Treatment Frequency and 1-2 times a week for 4-8 visits Duration These treatments will address the objective and functional deficits as defined above. The patient will be advanced safely and appropriately in order for the patient to progress towards his/her prior level of function. Additional exercises will be introduced and as well as a comprehensive home exercise program upon discharge, if needed, ?to ensure carryover of functional gains achieved in the clinic. This treatment plan has been reviewed and agreement upon by the patient.
--- NOTE | 2024-10-31 14:42 | PCPTNOTE ---
Pt NS visit today.
--- NOTE | 2024-11-18 16:04 | OPREHPOC ---
Outpatient Therapy Plan of Care This is a Multidisciplinary Plan of Care that may contain components documented by all disciplines (PT, OT, and ST.) PT Problem 1 PT Problem #1 Knowledge Deficit PT Goal 1 Goal / Goal Update 1. Patient will perform independent HEP 2. Patient will verbalize urge suppression strategies Target Visit 3 Progress Met PT Problem 2 PT Problem #2 Impaired Functional ADLs PT Goal 1 Goal / Goal Update 1. Patient will report urinary incontinence no more than 1 time per week 2. Patient able to hold urge to void at least 30 minutes Target Visit 5 Progress Met PT Problem 3 PT Problem #3 Impaired Strength PT Goal 1 Goal / Goal Update 1. Right hip abduction at least 4+/5 2. Pelvic floor strength 4/5 to reduce incontinence 3. Pelvic floor endurance 10 seconds to reduce incontinence update 10/13/24 1. improved 2. not assessed 3. not assessed update 11/18/24 1. no change from last update 2. not assessed 3. not assessed Target Visit 23 Progress Partially Met PT Problem 4 PT Problem #4 Pain PT Goal 1 Goal / Goal Update 1. Hip pain no higher than 3/10 with typical activities update 11/18/24 1. 8/10 highest Target Visit 23 Progress Not Met PT Problem 5 PT Problem #5 Impaired Gait PT Goal 1 Goal / Goal Update 1. Improve 2 minute walk test to at least 350 feet without stopping for pain Target Visit 13 Progress Met PT Goal 2 Goal / Goal Update New Goal 2. Improve 2 minute walk test to at least 450 feet without stopping for pain Target Visit 23
--- NOTE | 2024-11-18 16:04 | PTOPPROG ---
Assessment and note entered by Ama Jacome DPT Evaluation Information Assessment Status Progress ICD-10 Condition Codes (PT) Pain in right hip M25.551,Weakness R53.1,Stress incontinence N39.3 Subjective Information Highest hip pain in last week 03/01 and lowest / . Does feel that therapy has helped and her gait pattern is improved. Also states she is able to stand a little longer, notices her swelling goes away quicker as well. No incontinence issues recently. Also has not had to wake up to void as often. Assessment PT Clinical Summary The patient has continued to make progress in therapy. She reports feeling that her gait pattern has improved and she is able to do standing activities with less limitation. She demonstrates improved hip strength and significantly improved gait speed on 2 minute walk test. Due to her progress but continued constant pain and difficulty with typical activities she will benefit from further skilled therapy to reduce pain and restore function. Plan of Care Interventions Aquatic Therapy,Electrical Stimulation,Gait Training,Hot Pack/Cold Pack,Intermittent Compression Pump,Manual Therapy,Neuro Re-education ,Patient/Caregiver Education,Therapeutic Activities,Therapeutic Exercise,Ultrasound PT Services Indicated Yes Treatment Frequency and 2 times a week for 8-10 visits Duration These treatments will address the objective and functional deficits as defined above. The patient will be advanced safely and appropriately in order for the patient to progress towards his/her prior level of function. Additional exercises will be introduced and as well as a comprehensive home exercise program upon discharge, if needed, ?to ensure carryover of functional gains achieved in the clinic. This treatment plan has been reviewed and agreement upon by the patient.
--- NOTE | 2024-12-02 15:16 | PCPTNOTE ---
This treatment is being continued on visit number [id number]. Please see documentation on both accounts to view progress. Completed interventions, outcomes, and problems have been marked as Inactive to facilitate the copying of the Care plan routine for recurring accounts.
== END 2024-12-01 23:59 | disposition home or self-care (01) ==
LOC: ANHPT 08:00
PROVIDERS: Visit Provider Student in an Organized Health Care Education/Training Program
DX: N39.3 Stress incontinence (female) (male) (principal)
CPT/HCPCS: 97110; 97113; 97140; 97161; 97530

== ENCOUNTER 2024-12-23 06:28 | Outpatient (CLI) | payer OTHER, SELFPAY ==
--- NOTE | 2024-12-23 11:00 | NEURO_ITS ---
Impression: # Complains of right hand numbness. Not diabetic. ? # Right sensory Carpal Tunnel Syndrome. # No ulnar neuropathy. ? # Normal needle/EMG exam. Nerve Conduction Studies Anti Sensory Summary Table ?Stim Site NR Peak (ms) P-T Amp (?V) Site1 Site2 Delta-P (ms) Dist (cm) David (m/s) Right Median Anti Sensory (2-3nd Digit) Wrist ? 6.4 28.5 Wrist 2-3nd Digit 6.4 14.0 22 Wrist ? 6.9 16.1 Wrist 2-3nd Digit 6.4 14.0 22 Right Radial Anti Sensory (Base 1st Digit) Wrist ? 1.9 24.7 Wrist Base 1st Digit 1.9 0.0 Right Ulnar Anti Sensory (5th Digit) Wrist ? 2.8 15.1 Wrist 5th Digit 2.8 14.0 50 Motor Summary Table ?Stim Site NR Onset (ms) O-P Amp (mV) Site1 Site2 Delta-0 (ms) Dist (cm) David (m/s) Right Median Motor (Abd Poll Brev) Wrist ? 3.4 1.0 Elbow Wrist 5.2 26.0 50 Elbow ? 8.6 0.7 Right Ulnar Motor (Abd Dig Minimi) Wrist ? 2.4 7.1 A Elbow Wrist 4.9 28.0 57 A Elbow ? 7.3 4.6 B Elbow Wrist 3.5 20.0 57 B Elbow ? 5.9 3.8 F Wave Studies ?NR F-Lat (ms) L-R F-Lat (ms) Right Median (Mrkrs) (Abd Poll Brev) ? 29.18 Right Ulnar (Mrkrs) (Abd Dig Min) ? 28.07 EMG ?Side Muscle Nerve Root Ins Act Fibs Amp Dur Recrt Comment Right 1stDorInt Ulnar C8-T1 Nml Nml Nml Nml Nml Right Ext Indicis Radial (Post Int) C7-8 Nml Nml Nml Nml Nml Right Ext Digitorum Radial (Post Int) C7-8 Nml Nml Nml Nml Nml Right BrachioRad Radial C5-6 Nml Nml Nml Nml Nml Right PronatorTeres Median C6-7 Nml Nml Nml Nml Nml Right Abd Poll Brev Median C8-T1 Nml Nml Nml Nml Nml Right ABD Dig Min Ulnar C8-T1 Nml Nml Nml Nml Nml Right FlexPolLong Median (Ant Int) C7-8 Nml Nml Nml Nml Nml Right Abd Poll Long Radial (Post Int) C7-8 Nml Nml Nml Nml Nml
== END 2024-12-23 06:29 | disposition home or self-care (01) ==
LOC: ANHNEURO 06:30
PROVIDERS: PCP Family Medicine; Visit Provider Family Medicine
DX: G56.01 Carpal tunnel syndrome, right upper limb (principal)
CPT/HCPCS: 95886; 95909

== ENCOUNTER 2024-12-25 15:30 | Outpatient (RCR) | payer OTHER, SELFPAY ==
--- NOTE | 2024-12-02 15:17 | PCPTNOTE ---
The treatment documented on this account is a continuation of the treatment documented on visit number [id number]. Please see documentation on both accounts to view progress. The Plan of Care has been transitioned and updated within the new V#. I have addressed and agree with the discipline specific Problems, Interventions, and Goals for the current certification period. Completed interventions, outcomes, and problems have been marked as Inactive to facilitate the copying of the Care plan routine for recurring accounts.
--- NOTE | 2024-12-11 15:32 | PCPTNOTE ---
Pt called to cancel her appointment today due to allergies.
--- NOTE | 2024-12-18 16:08 | PCPTNOTE ---
Pt no showed visit, attempted to call with reminder of next appt but mail box is full and can not leave message.
--- NOTE | 2024-12-25 16:25 | PCPTNOTE ---
pt was 15 minutes late for today's reeval appt.
--- NOTE | 2024-12-25 16:25 | OPREHPOC ---
Outpatient Therapy Plan of Care This is a Multidisciplinary Plan of Care that may contain components documented by all disciplines (PT, OT, and ST.) PT Problem 1 PT Problem #1 Knowledge Deficit PT Goal 1 Goal / Goal Update 1. Patient will perform independent HEP 2. Patient will verbalize urge suppression strategies Target Visit 3 Progress Met PT Problem 2 PT Problem #2 Impaired Functional ADLs PT Goal 1 Goal / Goal Update 1. Patient will report urinary incontinence no more than 1 time per week 2. Patient able to hold urge to void at least 30 minutes Target Visit 5 Progress Met PT Problem 3 PT Problem #3 Impaired Strength PT Goal 1 Goal / Goal Update 1. Right hip abduction at least 4+/5 2. Pelvic floor strength 4/5 to reduce incontinence 3. Pelvic floor endurance 10 seconds to reduce incontinence update 10/13/24 1. improved 2. not assessed 3. not assessed update 11/18/24 1. no change from last update 2. not assessed 3. not assessed Target Visit 23 Progress Partially Met PT Problem 4 PT Problem #4 Pain PT Goal 1 Goal / Goal Update 1. Hip pain no higher than 3/10 with typical activities update 11/18/24 1. 8/10 highest 6-5-25 d/c goal not met, 8/10 at worst Target Visit 23 Progress Not Met PT Problem 5 PT Problem #5 Impaired Gait PT Goal 1 Goal / Goal Update 1. Improve 2 minute walk test to at least 350 feet without stopping for pain Target Visit 13 Progress Met PT Goal 2 Goal / Goal Update New Goal 2. Improve 2 minute walk test to at least 450 feet without stopping for pain 6-5-25 d/c goal not met, 360' Target Visit 23 Progress Not Met
--- NOTE | 2024-12-25 16:25 | PTOPDC ---
Assessment and note entered by Supriya Waterman, PT Assessment Status Discharge ICD-10 Condition Codes (PT) Pain in right hip M25.551,Weakness R53.1,Stress incontinence N39.3 Subjective Information have good days and bad days, when overdo it, body tells me; use the cane to help me walk- when go out, do not usually use in the house; like the water exercises; had a fall when going to sit, fell backwards and hit my head; ortho dr told her to call and schedule an appointment whenever she needs to see them. Reported Pain Level Pain Score Self Report Additional Pain Score Comments pain range in the past week 0-8/10; lateral and posterior hip also having pain in L hip and low back, R knee increase pain: walking- 5-15 minutes; too much activity decrease pain: stretching, rub over sore area; lie on back and flexion of hip; wear back brace Assessment PT Clinical Summary Lisa has received a total of 18 PT visits for pelvic floor and R hip pain treatment. Pelvic floor treatment has been completed and assessment today is for R hip pain. Compared to the last assessment for her R hip: pain from 5-8/10 to 0-8/10; reported standing and walking time of 5-15 minutes; tenderness and pain over lateral and posterior hip, ITB and quad areas; 2 minute walking test distance from 371 to 360'; decreased ROM of R hip: flexion 80', IR 10 ', ER 20' and extension (-20') and decreased strength due to pain. Education completed for HEP- on land and in the water. The goals were partially achieved. Discharge PT. She is to continue with her HEP and follow up with her ortho . Plan of Care PT Services Indicated No
== END 2025-01-01 16:09 | disposition home or self-care (01) ==
LOC: ANHPT 15:30
PROVIDERS: PCP Family Medicine; Visit Provider Student in an Organized Health Care Education/Training Program
DX: N39.3 Stress incontinence (female) (male) (principal); E66.9 Obesity, unspecified; R52 Pain, unspecified
CPT/HCPCS: 97110; 97113; 97140; 97530